=== PATIENT | female | born 1995 | race Caucasian/White ===

== ENCOUNTER 2018-03-31 11:39 | Emergency (ER) | payer BC ==
[2018-03-31 11:55] VITALS: BP 118/70; PULSE 95; TEMP 99.2; BMI 22.8
[2018-03-31] MEDS ORDERED: ALBUTEROL SO4 2.5/IPRATROPIUM 0.5 INH SOL 3 ML VIAL.NEB. NEB ONE ×2 (12:11→12:13)
[2018-03-31] MEDS ORDERED: predniSONE 20 MG TABLET (UD) PO ONE (12:11)
[2018-03-31] MEDS ORDERED: predniSONE 20 MG TABLET (UD) ONE (12:13)
--- NOTE | 2018-03-31 12:15 | PDOC ---
History of Present Illness - General Chief Complaint: Respiratory Stated Complaint: CHEST TIGHTNESS Time Seen by Provider: 03/31/18 12:01 History Source: Patient Exam Limitations: No Limitations - History of Present Illness Associated Symptoms: reports: cough, nasal congestion, nasal drainage, wheezing (22y/o F with h/o asthma, p/w chest tighness/cough X 3 days). denies: chest pain/soreness, dizziness, fever/chills, lightheadedness, shortness of breath, sore throat Past History - Travel Traveled outside of the country in the last 30 days: No Close contact w/someone who was outside of country & ill: No - Past Medical History Allergies/Adverse Reactions: Allergies Allergy/AdvReac Type Severity Reaction Status Date / Time No Known Allergies Allergy Verified 03/31/18 11:55 Home Medications: Ambulatory Orders Albuterol Sulfate Inhaler - [Ventolin Hfa Inhaler -] 1 - 2 inh PO Q4H 02/09/18 Albuterol Sulfate [Proair Respiclick] 90 mcg IH ACDIN 30 Days #1 canister Cetirizine HCl 10 mg PO DAILY 30 Days #30 tablet 03/31/18 predniSONE [Deltasone -] 40 mg PO DAILY 4 Days #8 tablet 03/31/18 Asthma: Yes (LAST ATTACK 1YR AGO) Cancer: No Cardiac Disorders: No COPD: No Diabetes: No HTN: No Seizures: No Thyroid Disease: No - Immunization History Immunization Up to Date: Yes - Suicide/Smoking/Psychosocial Hx Smoking History: Never smoked Have you smoked in the past 12 months: No Hx Alcohol Use: No Drug/Substance Use Hx: No Hx Substance Use Treatment: No Respiratory Specific PMHX - Complaint Specific PMHX Angina: No Bronchitis: No Pneumonia: No Pulmonary Embolus: No TB (Tuberculosis): No Review of Systems - Review of Systems Is the patient limited Mongolian proficient: No Constitutional: No: Chills, Fever Respiratory: Yes: Cough, Wheezing, Productive cough. No: Orthopnea, Shortness of Breath, SOB with Exertion, SOB at Rest, Stridor Cardiac (ROS): No: Chest Pain, Irregular Heart Rate, Lightheadedness, Palpitations Neurological: No: Headache Endocrine: No: Excessive Sweating, Flushing Hematologic/Lymphatic: No: Anemia, Blood Clots *Physical Exam - Vital Signs Last Vital Signs Temp Pulse Resp BP Pulse Ox 99.2 F 95 H 20 118/70 98 03/31/18 11:52 03/31/18 11:52 03/31/18 11:52 03/31/18 11:52 03/31/18 11:52 - Physical Exam Respiratory/Chest: positive: Lungs Clear, Other (pt states she is expressing chest tightness). negative: Respiratory Distress, Labored Respiration, Wheezing Cardiovascular: positive: Regular Rhythm, Regular Rate, S1, S2 Integumentary: positive: Normal Color Neurologic: positive: immunology specialist II-XII NML intact, Fully Oriented, Alert Medical Decision Making - Medical Decision Making 03/31/18 12:16 22 years old female with history of asthma presents with chest tightness and wheezing and cough for 3 days. Patient denies any prior intubation or hospitalization due to asthma exacerbation. She used her son's nebulizer prior to arrival to the emergency room. Exam patient does not appear to be in distress however reports chest tightness. No wheezing noted no retractions O2 sat is at 98% on room air. Plan: duo neb/prednisone reassess, dispo pending 03/31/18 12:53 She'll reassess after duo nebs and prednisone patient feels much better will discharge with instructions to follow primary care clinic *DC/Admit/Observation/Transfer Diagnosis at time of Disposition: Asthma attack Qualifiers: Asthma severity: mild Asthma persistence: unspecified Qualified Code(s): J45.901 - Unspecified asthma with (acute) exacerbation - Discharge Dispostion Disposition: HOME Admit: No - Prescriptions Prescriptions: Albuterol Sulfate [Proair Respiclick] 90 mcg IH ACDIN 30 Days #1 canister Cetirizine HCl 10 mg PO DAILY 30 Days #30 tablet predniSONE [Deltasone -] 40 mg PO DAILY 4 Days #8 tablet - Referrals Referrals: Fabian Fortune MD [Staff Physician] - 24 hours (primary care visit) - Patient Instructions Printed Discharge Instructions: Asthma -- Adult - Post Discharge Activity Forms/Work/School Notes: Back to Work
== END 2018-03-31 12:55 | disposition home or self-care (01) ==
LOC: JERFT 11:39
PROC: 3E0F7GC Introduction of Other Therapeutic Substance into Respiratory Tract, Via Natural or Artificial Opening (ICD-10-PCS; principal; 2018-03-31)
DX: J45.901 Unspecified asthma with (acute) exacerbation (principal)
CPT/HCPCS: 99281-25; J7620

== ENCOUNTER 2020-01-22 08:40 | Emergency (ER) | payer BC ==
[2020-01-22 08:58] VITALS: BP 112/70; PULSE 94; TEMP 98.1; BMI 21.2
--- NOTE | 2020-01-22 09:07 | PDOC ---
History of Present Illness - General Chief Complaint: Sore Throat Stated Complaint: THROAT/COUGH Time Seen by Provider: 01/22/20 08:58 History Source: Patient Exam Limitations: No Limitations Past History - Travel Traveled outside of the country in the last 30 days: No Close contact w/someone who was outside of country & ill: No - Past Medical History Allergies/Adverse Reactions: Allergies Allergy/AdvReac Type Severity Reaction Status Date / Time No Known Allergies Allergy Verified 01/22/20 08:49 Home Medications: Ambulatory Orders Albuterol Sulfate Inhaler - [Ventolin Hfa Inhaler -] 1 - 2 inh PO Q4H 02/09/18 Albuterol Sulfate [Proair Respiclick] 90 mcg IH ACDIN 30 Days #1 canister Asthma: Yes (LAST ATTACK 1YR AGO) Cancer: No Cardiac Disorders: No COPD: No Diabetes: No HTN: No Seizures: No Thyroid Disease: No - Immunization History Immunization Up to Date: Yes - Psycho Social/Smoking Cessation Hx Smoking History: Never smoked Have you smoked in the past 12 months: No Hx Alcohol Use: No Drug/Substance Use Hx: No Hx Substance Use Treatment: No Review of Systems - Review of Systems Able to Perform ROS?: Yes Comments:: 01/22/20 09:07 CONSTITUTIONAL: Absent: fever, chills, diaphoresis, generalized weakness, malaise, loss of appetite HEENT: Absent: rhinorrhea, nasal congestion, throat pain, throat swelling, difficulty swallowing, mouth swelling, ear pain, eye pain, visual Changes CARDIOVASCULAR: Absent: chest pain, loss of consciousness, palpitations, irregular heart rate, peripheral edema RESPIRATORY: Present: cough, chest tightness Absent: shortness of breath, dyspnea with exertion, orthopnea, wheezing, stridor, hemoptysis GASTROINTESTINAL: Absent: abdominal pain, abdominal distension, nausea, vomiting, diarrhea, constipation, melena, hematochezia GENITOURINARY: Absent: dysuria, frequency, urgency, hesitancy, hematuria, flank pain, genital pain MUSCULOSKELETAL: Absent: myalgia, arthralgia, joint swelling SKIN: Absent: rash, itching, pallor HEMATOLOGIC/IMMUNOLOGIC: Absent: easy bleeding, easy bruising, lymphadenopathy, frequent infections ENDOCRINE: Absent: unexplained weight gain, unexplained weight loss, heat intolerance, cold intolerance NEUROLOGIC: Absent: headache, focal weakness or paresthesias, dizziness, unsteady gait, seizure, mental status changes, bladder or bowel incontinence PSYCHIATRIC: Absent: anxiety, depression, suicidal or homicidal ideation, hallucinations. ] Is the patient limited Maldivian proficient: No *Physical Exam - Vital Signs Last Vital Signs Temp Pulse Resp BP Pulse Ox 98.1 F 94 H 18 112/70 99 01/22/20 08:57 01/22/20 08:57 01/22/20 08:57 01/22/20 08:57 01/22/20 08:57 - Physical Exam 01/22/20 09:07 GENERAL: Well developed, well nourished. Awake and alert. No acute distress. HEENT: Normocephalic, atraumatic. PERRLA, EOMI. No conjunctival pallor. Sclera are non- icteric. Moist mucous membranes. Oropharynx is clear. NECK: Supple. Full ROM. No lymphadenopathy. CARDIOVASCULAR: Regular rate and rhythm. No murmurs, rubs, or gallops. Distal pulses are 2+ and symmetric. PULMONARY: No evidence of respiratory distress. Lungs clear to auscultation bilaterally. No wheezing, rales or rhonchi. SKIN: Warm and dry. Normal capillary refill. No rashes. No jaundice. NEUROLOGICAL: Alert, awake, appropriate. Cranial nerves 2-12 intact. No deficits to light touch and temperature in face, upper extremities and lower extremities. No motor deficits in the in face, upper extremities and lower extremities. Normoreflexic in the upper and lower extremities. Normal speech. Toes are down- going bilaterally. Gait is normal without ataxia. PSYCHIATRIC: Cooperative. Good eye contact. Appropriate mood and affect. Medical Decision Making - Medical Decision Making 01/22/20 10:23 Patient is a 24-year-old female past medical history of asthma, presents to the ER today for cough and chest tightness. She is here with her two children who have the flu. She states that she feels like her asthma is acting up. She tried using her pump at home however she states that it only has 6 puffs left and she does not feel it worked well. Denies fevers, chills, chest pain, shortness of breath at rest, nausea, vomiting and diarrhea. She has never been intubated or hospitalized for her asthma. A/P: Asthma exacerbation Lungs are clear to auscultation bilateral without wheezes rales or rhonchi Patient feels better after 1 DuoNeb. Given her children just tested positive for the flu will cover her with Tamiflu to prevent possible flu infection. Refill butyryl pump Discharge home with primary care follow-up. I discussed the physical exam findings, ancillary test results and final diagnoses with the patient. I answered all of the patient's questions. The patient was satisfied with the care received and felt comfortable with the discharge plan and treatment plan. The Patient agrees to follow up with the primary care physician/specialist within 24-72 hours. Return precautions were given. Discharge - Discharge Information Problems reviewed: Yes Clinical Impression/Diagnosis: Asthma attack Qualifiers: Asthma severity: mild Asthma persistence: intermittent Qualified Code(s): J45.21 - Mild intermittent asthma with (acute) exacerbation Condition: Stable Disposition: HOME - Admission No - Follow up/Referral Referrals: Fabian Fortune MD [Staff Physician] - - Patient Discharge Instructions Patient Printed Discharge Instructions: DI for Asthma -- Adult Additional Instructions: You were evaluated for your asthma today. Your albuterol pump was refilled. Your children tested positive for influenza. We will treat you prophylactically with Tamiflu. Follow-up with your primary care doctor in 1 week. Return to the ER for difficulty breathing, shortness of breath, fever or if you have any changes in your symptoms. - Post Discharge Activity Work/Back to School Note: Back to Work
[2020-01-22] MEDS ORDERED: ALBUTEROL SO4 2.5/IPRATROPIUM 0.5 INH SOL 3 ML VIAL.NEB. NEB ONE ×2 (09:44→09:48)
== END 2020-01-22 11:02 | disposition home or self-care (01) ==
LOC: JERFT 08:40
PROC: 3E0F7GC Introduction of Other Therapeutic Substance into Respiratory Tract, Via Natural or Artificial Opening (ICD-10-PCS; principal; 2020-01-22)
DX: J45.21 Mild intermittent asthma with (acute) exacerbation (principal)
CPT/HCPCS: 99283-25

== ENCOUNTER 2021-08-07 19:20 | Emergency (ER) | payer BC ==
[2021-08-07 19:29] VITALS: BP 119/68; PULSE 85; TEMP 98.3; BMI 25.7
[2021-08-07] MEDS ORDERED: ACETAMINOPHEN 325 MG TABLET (FP) PO ONE (22:00)
[2021-08-07] MEDS ORDERED: SODIUM CHLORIDE 0.9% 500 ML INFUS.BAG IV ONE (22:00)
[2021-08-07] MEDS ORDERED: ONDANSETRON 4 MG/2 ML VIAL IVPUSH ONE (22:19)
[2021-08-07] MEDS ORDERED: ONDANSETRON 4 MG/2 ML VIAL ONE (22:38)
[2021-08-07 22:45] LABS: HEMATOCRIT 38.2 % (32.4-45.2); HEMOGLOBIN 12.9 GM/dL (10.7-15.3); MCH 28.9 pg (25.7-33.7); MCHC 33.8 g/dl (32.0-36.0); MEAN CELL VOLUME 85.6 fl (80-96); MEAN PLT VOLUME 9.3 fl (7.5-11.1); PLATELET COUNT 231 10^3/uL (134-434); RBC 4.47 M/mm3 (3.60-5.2); RDW 14.1 % (11.6-15.6); WHITE BLOOD COUNT 13.1 K/mm3 (4.0-10.0)
[2021-08-07 22:47] LABS: EPI CELLS >36 /uL (0-25.1); HYALINE CASTS 5 /uL (0-3.1); PH,URINE 6.5 (5.0-8.0); URINE APPEARANCE Error; URINE BACTERIA 2055 /uL (0-1359); URINE BILIRUBIN NEGATIVE (NEGATIVE); URINE COLOR YELLOW; URINE GLUCOSE (UA) NEGATIVE (NEGATIVE); URINE KETONE TRACE (NEGATIVE); URINE LEUK ESTERASE TRACE (NEGATIVE); URINE NITRITE NEGATIVE (NEGATIVE); URINE PROTEIN TRACE (NEGATIVE); URINE RBC 15 /uL (0-23.9); URINE WBC 42 /uL (0-25.8)
[2021-08-07] MEDS ORDERED: ACETAMINOPHEN 325 MG TABLET (FP) ONE (23:05)
[2021-08-07 23:07] LABS: BLOOD UREA NITROGEN 12.1 mg/dL (7-18); CALCIUM 8.7 mg/dL (8.5-10.1)
[2021-08-07 23:11] LABS: CREATININE 0.6 mg/dL (0.55-1.3)
[2021-08-07] MEDS ORDERED: CEFTRIAXONE 1 GM/50 ML BAG ONE (23:51)
== END 2021-08-08 00:40 | disposition home or self-care (01) ==
LOC: JER 19:20
PROC: 3E033GC Introduction of Other Therapeutic Substance into Peripheral Vein, Percutaneous Approach (ICD-10-PCS; principal; 2021-08-07)
DX: O23.41 Unspecified infection of urinary tract in pregnancy, first trimester (principal); Z3A.01 Less than 8 weeks gestation of pregnancy
CPT/HCPCS: 36415; 76801-TC; 80048; 81003; 84702; 85027; 87086; 99284-25

== ENCOUNTER 2021-08-10 18:22 | Emergency (ER) | payer BC ==
[2021-08-10 18:48] VITALS: BP 111/71; PULSE 95; TEMP 97.5; BMI 27.4
[2021-08-10] MEDS ORDERED: ACETAMINOPHEN 1000 MG/100 ML VIAL (NON FORMULARY) IVPB ONE (20:07)
[2021-08-10] MEDS ORDERED: SODIUM CHLORIDE 0.9% 500 ML INFUS.BAG IV ONE (20:07)
[2021-08-10] MEDS ORDERED: ONDANSETRON 4 MG/2 ML VIAL IVPUSH ONE (20:51)
[2021-08-10] MEDS ORDERED: ACETAMINOPHEN INJECTION 100 ML IVPB ONE (20:52)
[2021-08-10] MEDS ORDERED: ONDANSETRON 4 MG/2 ML VIAL ONE (20:53)
[2021-08-10 21:12] LABS: BASO % 0.2 % (0-2.0); EOS % 0.7 % (0-4.5); HEMATOCRIT 35.7 % (32.4-45.2); HEMOGLOBIN 12.1 GM/dL (10.7-15.3); LYMPH % 13.7 % (8-40); MCH 28.8 pg (25.7-33.7); MCHC 33.9 g/dl (32.0-36.0); MEAN CELL VOLUME 84.9 fl (80-96); MEAN PLT VOLUME 9.3 fl (7.5-11.1); MONO % 7.4 % (3.8-10.2); PLATELET COUNT 208 10^3/uL (134-434); RDW 14.1 % (11.6-15.6); WHITE BLOOD COUNT 14.8 K/mm3 (4.0-10.0)
[2021-08-10 21:35] LABS: CALCIUM 8.4 mg/dL (8.5-10.1)
[2021-08-10 21:37] LABS: ALBUMIN 3.5 g/dl (3.4-5.0); BLOOD UREA NITROGEN 11.2 mg/dL (7-18)
[2021-08-10 21:40] LABS: CREATININE 0.6 mg/dL (0.55-1.3)
[2021-08-10 21:41] LABS: BILIRUBIN,TOTAL 0.1 mg/dL (0.2-1); TOT PROT 7.1 g/dl (6.4-8.2)
== END 2021-08-11 01:37 | disposition home or self-care (01) ==
LOC: JER 18:22
PROC: 3E0333Z Introduction of Anti-inflammatory into Peripheral Vein, Percutaneous Approach (ICD-10-PCS; principal; 2021-08-10)
PROC: 3E033GC Introduction of Other Therapeutic Substance into Peripheral Vein, Percutaneous Approach (ICD-10-PCS; 2021-08-10)
DX: N93.9 Abnormal uterine and vaginal bleeding, unspecified (principal)
CPT/HCPCS: 36415; 71046-TC-FY; 76830-TC; 80053; 84702; 85025; 86850; 86900; 86901; 99285-25; J0131